=== PATIENT | female | born 1980 | race African-American/Black ===

== ENCOUNTER 2019-10-24 07:33 | Emergency (ER) | payer OTHER ==
[~2019-10-24] VITALS: Ht 157.5 cm; Wt 65.8 kg
[2019-10-24 07:59] VITALS: Ht 157.5 cm; Wt 65.8 kg
[2019-10-24 08:44] VITALS: BP 114/72
== END 2019-10-24 08:44 | disposition home or self-care (01) ==
LOC: ED 07:33
DX: H10.32 Unspecified acute conjunctivitis, left eye (principal)

== ENCOUNTER 2020-02-18 12:50 | Emergency (ER) | payer OTHER ==
[~2020-02-18] VITALS: Ht 157.5 cm; Wt 64.4 kg
[2020-02-18 13:02] VITALS: BP 102/69; Ht 157.5 cm; Wt 64.4 kg
== END 2020-02-18 14:18 | disposition home or self-care (01) ==
LOC: ED 12:50
DX: H60.92 Unspecified otitis externa, left ear (principal)

== ENCOUNTER 2020-04-16 16:25 | Emergency (ER) | payer OTHER ==
[~2020-04-16] VITALS: Ht 157.5 cm; Wt 68.5 kg
[2020-04-16 16:47] VITALS: BP 97/72; Ht 157.5 cm; Wt 68.5 kg
== END 2020-04-16 17:35 | disposition home or self-care (01) ==
LOC: ED 16:25
DX: R21 Rash and other nonspecific skin eruption (principal)